=== PATIENT | male | born 1985 ===

== ENCOUNTER 2024-03-25 | Outpatient (REF) | payer OTHER, SELFPAY ==
--- NOTE | 2024-03-25 | HM_ITS ---
Conclusion: 1. Patient was monitored for total period of 3 days 2. Baseline was normal sinus rhythm with average heart of 75 beats per minute 3. No significant arrhythmias or pauses noted 4. Patient marked the counter 6 times with symptoms of either brief chest pain or lightheadedness correlating with sinus rhythm MTDD
== END 2024-03-25 00:01 | disposition home or self-care (01) ==
LOC: CF
PROVIDERS: Visit Provider Internal Medicine Cardiovascular Disease
DX: R07.9 Chest pain, unspecified (principal)
CPT/HCPCS: 93242

== ENCOUNTER → 2024-03-25 09:00 | Outpatient (BNV) | payer OTHER, SELFPAY | PROVIDERS: Visit Provider Internal Medicine Cardiovascular Disease | DX: R00.0 Tachycardia, unspecified (principal); R07.9 Chest pain, unspecified | CPT/HCPCS: 93244 ==